=== PATIENT | female | born 1980 | race African-American/Black ===

== ENCOUNTER 2018-02-20 18:22 | Emergency (ER) | payer OTHER ==
[~2018-02-20] VITALS: Ht 177.8 cm; Wt 116.1 kg
[2018-02-20 18:27] VITALS: BP 128/89
== END 2018-02-20 19:42 | disposition left against medical advice (07) ==
LOC: ER 18:22
DX: S40.861A Insect bite (nonvenomous) of right upper arm, initial encounter (principal); Z53.21 Procedure and treatment not carried out due to patient leaving prior to being seen by health care provider; W57.XXXA Bitten or stung by nonvenomous insect and other nonvenomous arthropods, initial encounter; Y93.89 Activity, other specified; Y99.8 Other external cause status; Y92.89 Other specified places as the place of occurrence of the external cause